=== PATIENT | female | born 1995 | race Caucasian/White ===

== ENCOUNTER 2024-06-26 03:02 | Emergency (ER) | payer OTHER ==
[~2024-06-26] VITALS: Ht 149.9 cm; Wt 97.5 kg
[2024-06-26 03:08] VITALS: BP_SYST 169; PULSE 76; RESP 17; TEMP 97.6; O2SAT 98
[2024-06-26] MEDS: DIPHTH,PERTUSS(ACELL),TET VAC 0.5 ML VIAL (Tdap) I.M. ONE (04:05)
[2024-06-26] MEDS ORDERED: DOLU50TA PO (04:21)
[2024-06-26] MEDS ORDERED: EMTR1TAB12 PO (04:21)
[2024-06-26 05:47] VITALS: BP_SYST 169; PULSE 76; RESP 17; TEMP 97.6; O2SAT 98
[2024-06-27 08:06] LABS: HEPATITIS B CORE AB, TOTAL Negative (Negative); HEPATITIS B SURFACE AG Negative (Negative); HEPATITIS C VIRUS AB Non Reactive (Non Reactive)
== END 2024-06-26 05:11 | disposition home or self-care (01) ==
LOC: SED 03:02
DX: S41.131A Puncture wound without foreign body of right upper arm, initial encounter (principal); R06.02 Shortness of breath; F41.9 Anxiety disorder, unspecified; Z23 Encounter for immunization; Z79.624 Long term (current) use of inhibitors of nucleotide synthesis; X58.XXXA Exposure to other specified factors, initial encounter; Y93.89 Activity, other specified; Y92.89 Other specified places as the place of occurrence of the external cause; Y99.8 Other external cause status
CPT/HCPCS: 36415; 86704; 86706; 86803; 87340; 90715; 99283